=== PATIENT | male | born 1970 | race Caucasian/White ===

== ENCOUNTER 2018-04-26 14:26 | Emergency (ER) | payer OTHER ==
[2018-04-26 14:33] VITALS: BP 128/92
--- NOTE | 2018-04-26 14:44 | UC ---
Skin Complaint HPI - HPI Summary HPI Summary: insect bite on right lateral thigh--has been there for 3 days. It was not a Tick per the patient---patient has had itching erythema and bruise at site - History of Current Complaint Chief Complaint: UCSkin Time Seen by Provider: 04/26/18 14:37 Stated Complaint: TICK BITE RIGHT UPPER THIGH Hx Obtained From: Patient Onset/Duration: Sudden Onset, Lasting Days - 3, Still Present Pain Intensity: 0 Pain Scale Used: 0-10 Numeric Location: Discrete Character: Redness Aggravating Factor(s): Nothing Alleviating Factor(s): Nothing Associated Signs & Symptoms: Positive: Bruising Related History: Possible Reaction to: Insect - Allergy/Home Medications Allergies/Adverse Reactions: Allergies Allergy/AdvReac Type Severity Reaction Status Date / Time No Known Allergies Allergy Verified 04/26/18 14:33 Home Medications: Home Medications NK [No Home Medications Reported] 04/26/18 [History Confirmed 04/26/18] Review of Systems Constitutional: Negative Skin: Bruising - and redness for 3 days after an insect bite-- Eyes: Negative ENT: Negative Respiratory: Negative Cardiovascular: Negative Gastrointestinal: Negative Genitourinary: Negative Motor: Negative Neurovascular: Negative Musculoskeletal: Negative Neurological: Negative Psychological: Negative Is Patient Immunocompromised?: No All Other Systems Reviewed And Are Negative: Yes PMH/Surg Hx/FS Hx/Imm Hx Previously Healthy: Yes - Surgical History Surgical History: None - Family History Known Family History: Positive: None - Social History Occupation: Employed Full-time Lives: With Family Alcohol Use: Occasionally Substance Use Type: None Smoking Status (MU): Never Smoked Tobacco - Immunization History Most Recent Tetanus Shot: unknown Physical Exam Triage Information Reviewed: Yes Appearance: Well-Appearing, No Pain Distress, Well-Nourished Vital Signs: Initial Vital Signs Temp 97.2 F 04/26/18 14:30 Pulse 109 04/26/18 14:30 Resp 18 04/26/18 14:30 BP 128/92 04/26/18 14:30 Pulse Ox 99 04/26/18 14:30 Vital Signs Reviewed: Yes Eye Exam: Normal Eyes: Positive: Conjunctiva Clear ENT Exam: Normal ENT: Positive: Normal ENT inspection, Hearing grossly normal. Negative: Trismus , Muffled voice, Hoarse voice Dental Exam: Normal Neck exam: Normal Neck: Positive: Supple, Nontender Respiratory Exam: Normal Respiratory: Positive: Chest non-tender, No respiratory distress, No accessory muscle use Cardiovascular Exam: Normal Cardiovascular: Positive: RRR, Pulses Normal, Brisk Capillary Refill Musculoskeletal Exam: Normal Musculoskeletal: Positive: Strength Intact, ROM Intact, No Edema Neurological Exam: Normal Neurological: Positive: Alert, Muscle Tone Normal Psychological Exam: Normal Skin Exam: Other Skin: Positive: Other - bruising and redness at site of insect bite right lateral thigh Course/Dx - Course Course Of Treatment: cool compress mild soap and water wash, follow with pcp prn - Diagnoses Provider Diagnoses: local reaction to insect bite right lateral thigh Discharge - Sign-Out/Discharge Documenting (check all that apply): Discharge/Admit/Transfer - Discharge Plan Condition: Stable Disposition: HOME Patient Education Materials: Insect Bite or Sting (ED) Referrals: [facility] [Outside] - If Needed - Billing Disposition and Condition Condition: STABLE Disposition: Home
== END 2018-04-26 14:50 | disposition home or self-care (01) ==
LOC: UCEAST 14:26
DX: S70.361A Insect bite (nonvenomous), right thigh, initial encounter (principal); W57.XXXA Bitten or stung by nonvenomous insect and other nonvenomous arthropods, initial encounter; Y93.9 Activity, unspecified; Y92.9 Unspecified place or not applicable
CPT/HCPCS: 99211; G0463

== ENCOUNTER 2019-11-01 13:12 | Emergency (ER) | payer OTHER ==
--- OUTSIDE RECORDS SUMMARY | 2019-11-01 13:20 | XMS REPORT | Continuity of Care Document ---
:1970 External Reference #:[id number] Author Name Xi Nobles MD (transmitted by agent of provider Rozina Cleveland) Address [address] [place] [id number] Care Team Providers Name Role Phone Sly Menjivar MD - Family Medicine Care Team Information [employer] Problems Description No Information Available Social History Type Date Description Comments Sex Unknown Tobacco Use Start: Unknown Never Smoked Cigarettes ETOH Use Currently consumes alcohol 2x a week Allergies, Adverse Reactions, Alerts Description No Known Drug Allergies Medications Description No Active Medications Immunizations Description No Information Available Vital Signs Date Vital Result Comment 09/05/2019 2:57pm Height 68 inches 5'8" Weight 160.00 lb Weight 72.576 kg BMI (Body Mass Index) 24.3 kg/m2 BP Systolic 143 mmHg BP Diastolic 108 mmHg Heart Rate 78 /min Results Description No Information Available Procedures Description No Information Available Medical Devices Description No Information Available Encounters Type Date Location Provider Dx Diagnosis Office Visit 09/05/2019 [facility] Xi Z30.2 Encounter for [address]/ ming [facility] MD Assessments Date Code Description Provider 09/05/2019 Z30.2 Encounter for sterilization Xi Nobles MD Plan of Treatment Future Appointment(s):11/23/2019 11:30 am - Xi Nobles MD at [facility]/ [facility]91/04/2019 - Xi Nobles MDZ30.2 Encounter for sterilizationAllNew Medication:No Active Medications - Functional Status Description No Information Available Mental Status Description No Information Available Referrals Description No Information Available
[2019-11-01 13:27] VITALS: BP 163/100
--- NOTE | 2019-11-01 13:27 | UC ---
Throat Pain/Nasal Ismael HPI - HPI Summary HPI Summary: 49 yo male presents with hoarse voice. He tells me that for the last 3-4 days has had a horase voice that is improving slowly with voice rest. He has not been taking anything OTC for his symptoms. He denies fever, sinus symptoms, pain , cough, rash, n/v. He is most concerned because later this evening he has a singing performance and would like to participate. He is asking for an injection of steroids as he read online that this may help. - History of Current Complaint Chief Complaint: UCRespiratory Stated Complaint: SORE THROAT Time Seen by Provider: 11/01/19 13:27 Hx Obtained From: Patient Onset/Duration: Sudden Onset Pain Intensity: 0 - Allergies/Home Medications Allergies/Adverse Reactions: Allergies Allergy/AdvReac Type Severity Reaction Status Date / Time No Known Allergies Allergy Verified 11/01/19 13:27 PMH/Surg Hx/FS Hx/Imm Hx - Additional Past Medical History Additional PMH: None - Surgical History Surgical History: None - Family History Known Family History: Positive: None - Social History Occupation: Employed Full-time Lives: With Family Alcohol Use: Weekly Substance Use Type: None Smoking Status (MU): Never Smoked Tobacco - Immunization History Most Recent Tetanus Shot: unknown Review of Systems All Other Systems Reviewed And Are Negative: No Constitutional: Positive: Negative Skin: Positive: Negative Eyes: Positive: Negative ENT: Positive: Other - hoarse voice Respiratory: Positive: Negative Cardiovascular: Positive: Negative Neurological: Positive: Negative Psychological: Positive: Negative Physical Exam - Summary Physical Exam Summary: GENERAL: NAD. WDWN. No pain distress. SKIN: No rashes, sores, lesions, or open wounds. HEENT: Head: AT/NC Eyes: EOM intact. Conjunctiva clear without inflammation or discharge. Ears: Hearing grossly normal. TMs intact, no bulging, erythema, or edema. Nose: Nasal mucosa pink and moist. NTTP maxillary and frontal sinus. Throat: Posterior oropharynx without exudates, erythema, or tonsillar enlargement. Uvula midline. NECK: Supple. Nontender. No lymphadenopathy. CHEST: CTAB. No accessory muscle use. Breathing comfortably and in no distress. CV: RRR. Pulses intact. Cap refill <2seconds NEURO: Alert. PSYCH: Age appropriate behavior. Triage Information Reviewed: Yes Vital Signs: Initial Vital Signs Temp 98.7 F 11/01/19 13:23 Pulse 87 11/01/19 13:23 Resp 16 11/01/19 13:23 BP 163/100 11/01/19 13:23 Pulse Ox 97 11/01/19 13:23 Vital Signs Reviewed: Yes Throat Pain/Nasal Course/Dx - Course Course Of Treatment: Consistent with viral laryngitis. Given his vocal performance this evening, there is some evidence that IM steroids may improve his symptoms - therefore he was given 40mg kenalog IM in the clinic. - Differential Dx/Diagnosis Provider Diagnosis: Laryngitis Discharge ED - Sign-Out/Discharge Documenting (check all that apply): Patient Departure All imaging exams completed and their final reports reviewed: No Studies - Discharge Plan Condition: Stable Disposition: HOME Patient Education Materials: Laryngitis (ED) Referrals: No Primary Care Phys,NOPCP [Primary Care Provider] - Additional Instructions: If you develop a fever, shortness of breath, chest pain, new or worsening symptoms - please call your PCP or go to the ED immediately. Your blood pressure was high at todays visit. Please see your primary provider within 4 weeks for recheck and re-evaluation. - Billing Disposition and Condition Condition: STABLE Disposition: Home
[2019-11-01] MEDS ORDERED: Triamcinolone Acetonide* 40 MG/ML 1 ML VIAL IM ONE (13:34)
== END 2019-11-01 13:50 | disposition home or self-care (01) ==
LOC: UCEAST 13:12
DX: J04.0 Acute laryngitis (principal)
CPT/HCPCS: 99211; G0463; J3301